=== PATIENT | female | born 1955 | race Caucasian/White ===

== ENCOUNTER → 2017-12-14 | Outpatient (REF) | payer MEDICARE ==
[~2017-12-14] MED LIST: ALP5 PO; AMI25 PO; AMIT75TA42 PO; DIC10 PO; DICLOFENAC; DULO30CA35 PO; DULO60CA51 PO; ESOM40CA42 PO; ESTR0.9T14 PO; ESTR1.2525 PO; FLU10 PO; FUR20 PO; FURO-43 PO; GABA-1 PO; GEM600 PO; HYO125 SL; HYOS-24 SL; LIDO700A25 TP; LOM PO; LOPE2TAB PO; LOR5 PO; METH-271 PO; METHO500 PO; MIR15 PO; MIRT-18 PO; MORP-23 PO; MORP60CA15 PO; MORS15 PO; MORS60 PO; OMEP-218 PO; OXAP-1 PO; PER PO; PRESTIQ PO; PRO AIR IH; PRO25 PO; PROM25SU61 RC; SUMA100T32 PO; TERB250T64 PO; ZOLP-350 PO; [UNRECOGNIZED DRUG - CODE] PO; [UNRECOGNIZED DRUG - CODE] PO
== END ==
LOC: ZZSENDIN 13:46
PROVIDERS: ATTEND Physician Assistant
DX: G89.4 Chronic pain syndrome (principal)
CPT/HCPCS: 85651; 86038; 86140